=== PATIENT | male | born 1950 | race Caucasian/White ===

== ENCOUNTER 2019-01-27 20:17 | Inpatient (IN) | payer OTHER ==
[~2019-01-27] VITALS: Ht 185.4 cm; Wt 172.1 kg
[~2019-01-27 20:17] MED LIST: AMLODIPINE BESY10 M1 PO; ANDROGEL1.621 TP; BENAZEPRIL40 M1 PO; CENTRUM SILVER1 EAC2; COUMADIN4 MG PO; GLUCOTROL10 MG PO; KLOR-CON M2020 MEQ PO; LANTUS SOLOS100 U/M1 SQ; LASIX40 MG PO; LEVOTHYROXIN0.075 M2 PO; LIPITOR80 MG PO; METFORMIN HCL1000 MG PO; METOPROLOL SUCC25 M1 PO; NOVI SQ; PRILOSEC20 MG PO; RITE AID KRILL500 MG PO; SUPER B COMPLEX PO; [UNRECOGNIZED DRUG - CODE] PO
[2019-01-27 20:40] VITALS: Ht 185.4 cm; Wt 172.1 kg
--- NOTE | 2019-01-27 20:42 | NUR ---
PT BIB AMBULANCE FOR C/O OF SOB THAT STARTED APPROX 3 DAYS AGO. PER MEDICS THEY HEARD RALES WITH AUSCULTATION OF THE R LOBE AND DIMINISHED LUNG SOUNDS AT THE BASES. PER MEDICS PT WAS ALSO HYPERTENISIVE SO THEY GAVE PT NITRO 0.4MG SL X2. PT MEDICS PT IMPROVED AFTER SECOND NITRO. UPON ARRIVAL PT ON 4L OF O2. PT COMPLAINING OF SOB X3 DAYS AND R ANKLE PAIN. PT STATES THAT HIS ANKLE PAIN HAS BEEN FOR THE LAST 2 WEEKS. SWELLING NOTED TO PT BILATERAL LEGS WITH +1 PITTING EDEMA. PTS L LEG RED AND WARM TO THE TOUCH. PT RATES HIS PAIN A 10/10. WHEEZING HEARD ON THE R LOWER LOBE. PT IS A/O X4. RESP ARE EQUAL AND UNLABORED. NO ACUTE DISTRESS NOTED.
[2019-01-27 21:11] LABS: PLATELET COUNT 209 x10^3mcL (130-400)
[2019-01-27 21:16] LABS: RED CELL DISTRIBUTION WIDTH 14.8 % (11.5-14.5)
[2019-01-27 21:21] LABS: CALCIUM 8.7 mg/dL (8.5-10.1); CARBON DIOXIDE 25.5 mmol/L (21-32); CREATININE SERUM 2.6 mg/dL (0.7-1.3); POTASSIUM SERUM 4.4 mmol/L (3.5-5.1)
[2019-01-27 21:26] LABS: ALBUMIN 2.7 g/dL (3.4-5.0); BILIRUBIN TOTAL 1.8 mg/dL (0.20-1.00); TOTAL PROTEIN, SERUM 6.8 g/dL (6.4-8.2)
[2019-01-27 21:28] LABS: BAND NEUTROPHIL 2 % (0-10); MONOCYTE 8 % (0-7); SEGMENTED NEUTROPHILS 83 % (37-75)
[2019-01-27 21:31] LABS: PLATELET MORPHOLOGY PLATELETS NORMAL; rbc morphology (normal/abnorm) NORMAL (NORMAL)
--- NOTE | 2019-01-27 22:05 | NUR ---
UPON PLACING PACE PT NOTED TO HAVE REDNESS ON HIS BILATERAL INNER THIGHTS. PT STATES THAT REDNESS HAS BEEN THERE FOR APPROX 2 WEEKS.
[2019-01-27 22:37] LABS: microscopic required? YES; urine erythrocyte 3+ (NEGATIVE)
[2019-01-27] MEDS ORDERED: CHILDREN'S100 MG/52 PO (22:38)
[2019-01-27] MEDS ORDERED: FLUOXETINE HYDR20 M2 PO (22:39)
[2019-01-27] MEDS ORDERED: D3-50001 TAB PO (22:39)
--- NOTE | 2019-01-27 22:39 | NUR ---
SPOKE TO PHARMACIST ABOUT LOVENOX ORDERED BY MD VERA. PHARMACISIT RECOMMENDS HEPARIN FOR PT DUE TO PTS WEIGHT AND BUN LEVEL. MD VERA MADE AWARE. PER MD VERA I NEED TO SPEAK TO MD MILLER TO HAVE ORDER FOR HEPARIN PLACED.
[2019-01-27] MEDS ORDERED: TOPROL XL50 MG PO (22:40)
--- NOTE | 2019-01-27 22:43 | NUR ---
CALLED MD MILLER AND MADE HIM AWARE OF THE PHARMACIST RECOMMENDATION TO GIVE PT HEPARIN INSTEAD OF LOVENOX. MD MILLER VERBALIZES UNDERSTANDING AND STATES THAT WE WILL PUT IN THE ORDER FOR HEPARIN AND WOULD LIKE IT TO BE GIVEN IN THE ER BEFORE PT IS ADMITTED, AWAITING MD MILLER ORDER.
--- NOTE | 2019-01-27 22:46 | NUR ---
REPORT GIVEN TO MICHELLE PONCE TO ASSUME CARE OF PT.
--- NOTE | 2019-01-27 23:43 | NUR ---
MD MILLER MADE AWARE OF THE PHARMACIST RECOMMENDATION. MD MILLER STATES THAT HE WILL PUT IN THE ORDER FOR HEPARIN AND WOULD LIKE THE FIRST DOSE GIVEN IN THE ER, AWAITING ORDERS.
[2019-01-27 23:59] VITALS: BP 92/66
[2019-01-28] VITALS (7 sets, daily range): BP systolic 92–158; BP diastolic 48–72
--- NOTE | 2019-01-28 | NUR ---
RECEIVED PT FROM ED. PT AOX4, DENIES BARR/DIZZINESS. ON TELE #14, PACED WITH PVCS, DENIES CP/PRESSURE. SWELLING NOTED BLE. AUDIBLE WHEEZES HEARD UPON AUSCULTATION, ON 2L NC. SOB UPON EXERTION. PACE CATH IN PLACE, YELLOW OUTPUT NOTED. GEN WEAKNESS. EDEMA/ERYTHEMA BLE. IV TO RAC, INTACT AND PATENT. BED IN LOWEST POSITIN. CALL LIGHT WITHIN REACH. WILL CONTINUE TO MONITOR.
--- NOTE | 2019-01-28 00:53 | NUR ---
HEPARIN GTT INFUSION STARTED PER DR. KAYE. PER PROTOCOL, BASED ON PT WEIGHT OF 173KG, LOADING IV DOSE SHOULD BE 10,400 UNITS AND INITIAL INFUSION DOSE SHOULD BE 2,100 UNITS/HOUR. INITIAL LOADING DOSE OF 10,000 UNITS GIVEN (MAX DOSE PER PHARMACY) AND INITIAL INFUSION RATE AT 1,500 UNITS/HOUR (MAX DOSE PER PROTOCOL), PER DR. NGUYEN. VERIFIED BY ROSARIO LLOYD. NEXT PTT ORDERED FOR 0700.
[2019-01-28 01:59] LABS: CHOLESTEROL/HDL RATIO 3.7; MAGNESIUM 1.8 mg/dL (1.8-2.4)
[2019-01-28 02:21] LABS: FREE T4 1.07 ng/dL (0.76-1.46); FREE THYROXINE INDEX 2.2 ug/dL (1.4-4.5); T4(THYROXINE) 5.9 ug/dL (4.7-13.3)
[2019-01-28 02:58] LABS: T3 TOTAL 0.58 ng/mL
--- NOTE | 2019-01-28 03:05 | NUR ---
PT RESTING IN BED. RR EVEN AND UNLABORED. IN NO ACUTE DISTRESS. CALL LIGHT WITHIN REACH. BED IN LOWEST POSITION. WILL CONTINUE TO MONITOR.
--- NOTE | 2019-01-28 04:00 | NUR ---
ENTERED ROOM, FOUND PT WITH OXYGEN OFF, PER PT HE HAD JUST TAKEN IT OFF. PLACED PT BACK ON O2 INCREASED IT TO 4L NC. PT WAS SATING AT 94%, BREATHING LABORED. PLACED PT ON NON REBREATHER MASK AT 15L, PT CONTINUED TO HAVE LABORED BREATHING. PAGED RT AND DR. NGUYEN. RT RECOMMENDED BIPAP, PLACED PT ON BIPAP, SATING AT 100%.
--- NOTE | 2019-01-28 06:32 | NUR ---
PT PLACED ON CONTINUOUS PULSE OX.
[2019-01-28 07:17] LABS: BASOPHIL % 0.3 % (0-2); PLATELET COUNT 193 x10^3mcL (130-400)
[2019-01-28 07:18] LABS: RED CELL DISTRIBUTION WIDTH 14.7 % (11.5-14.5)
--- NOTE | 2019-01-28 07:25 | NUR ---
RECEIVED PT FROM ZO PONCE. PT FOUND RESTING IN BED WITH BOTH EYES CLOSED. EASILY AROUSABLE TO VERBAL STIMULI. BIPAP IN PLACE. PT ATTEMPTS TO REMOVE BIBAP. AA/OX3. CONFUSED AT TIMES. NO S/S OF ACUTE DISTRESS. DENIES SOB AT THIS TIME. NO COMPLAINT OF PAIN. IVS WNL TO RFA/LH. HEPARIN DRIP RUNNING AT 1500UNITS/HR. 15ML. VERIFIED WITH ZO SORTO AT BEDSIDE. NO S/S OF BLEEDING. BLE ERYTHEMA NOTED, DAHLIA. SKIN WARM, DRY, INTACT. PACE IN TACT. DRAINING WITH NO DEPENDENTLY LOOPS TO GRAVITY. BED IN LOW POSITION. CALL LIGHT WITHIN REACH. WILL CONTINUE TO MONITOR.
[2019-01-28 07:49] LABS: BILIRUBIN TOTAL 1.18 mg/dL (0.20-1.00); CALCIUM 8.8 mg/dL (8.5-10.1); CARBON DIOXIDE 19.4 mmol/L (21-32); CREATININE SERUM 2.6 mg/dL (0.7-1.3); POTASSIUM SERUM 4.3 mmol/L (3.5-5.1)
[2019-01-28 08:01] LABS: ALBUMIN 2.7 g/dL (3.4-5.0)
--- NOTE | 2019-01-28 08:14 | NUR ---
0805 TROP 0.622 TRENDING DOWN. PT ON HEPARIN AT 1500UNITS/HR. WILL NOTIFY PHYSICIAN. NO S/S OF ACUTE DISTRESS. NO COMPLAINT OF CHEST PAIN. WILL MONITOR.
--- NOTE | 2019-01-28 08:27 | NUR ---
PTT 42.2 HEPARIN RUNNING AT 1500UNITS/HR (15ML/HR), HEPARIN DRIP INCREASED TO 1800UNITS/HR (18ML/HR) VERIFIED WITH BAG MACHINE OPERATOR HELPER JANE AT BEDSIDE. PT TO RECEIVE 7000 UNIT BOLUS PER PROTOCOL. WILL MONITOR.
--- NOTE | 2019-01-28 09:11 | NUR ---
PTT 42.2, BOLUS GIVEN 7000 UNITS. VERIFIED WITH ROSARIO HARMAN AT BEDSIDE. NO S/S OF BLEEDING. PTT LAB REORDERED FOR 1300. WILL MONITOR. HEPARIN RUNNING AT 1800 UNITS/HR.
--- NOTE | 2019-01-28 12:10 | NUR ---
PT LAYING IN BED WITH HOB ELEVATED IN HIGH FOWLERS. NO S/S OF ACUTE DISTRESS. REPORTS BACK PAIN DECREASING AFTER PO PAIN MED, RATES PAIN 5/10, ACHING, TOLERABLE AT THIS TIME. DENIES CHEST PAIN. NO SOB ON 4LNC. O2 SAT 96%. RR EVEN/UNLABORED/SHALLOW. IVS WNL TO LH AND RFA, IV FLUIDS FLOWING TO RFA. HEPARIN DRIP RUNNING AT 1800UNITS/HR (18ML/HR), NO S/S OF BLEEDING. BED IN LOW POSITION. CALL LIGHT WITHIN REACH. PT AA/OX4 AT THIS TIME. CALM/COOPERATIVE. INSTRUCTED TO USE CALL LIGHT TO CALL FOR ASSISTANCE PRN. VERBALIZED UNDERSTANDING. WILL CONTINUE TO MONITOR.
--- NOTE | 2019-01-28 12:44 | NUR ---
ECHOCARDIOGRAM PENDING-EATING LUNCH
--- NOTE | 2019-01-28 14:29 | NUR ---
TROP 0.[address] MCCAULEY MADE AWARE. PT ON HEPARIN DRIP AT 1800UNITS/HR (18ML/HR), NO S/S OF ACUTE DISTRESS. NSR ON TELE. NO CHEST PAIN. WILL CONTINUE TO MONITOR.
--- NOTE | 2019-01-28 14:49 | NUR ---
PTT 66.5, ELEVATED, HEPARIN DRIP DECREASED 300 UNITS, NOW RUNNING AT 1500UNITS/HR (15ML/HR) PER PROTOCOL. NO S/S OF BLEEDING. NO S/S OF ACUTE DISTRESS. NO CHEST PAIN. NO SOB ON 4LNC. O2 SAT 97%. RR EVEN/SHALLOW/UNLABORED AT THIS TIME. BED IN LOW POSITION. CALL LIGHT WITHIN REACH. WILL CONTINUE TO MONITOR.
--- NOTE | 2019-01-28 15:00 | NUR ---
PT TAKEN FOR PROCEDURE. AA/OX4. NO SOB ON 4LNC. O2 SAT 97%. RR EVEN/SHALLOW UNLABORED. IVS LOCKED TO LH/RFA. NO CHEST PAIN. CALM/COOPERATIVE. PACE IN TACT. INTERDRY IN PLACE TO PERINEAL FOLDS. NO COMPLAINT OF PAIN. NO CHEST PAIN.
--- NOTE | 2019-01-28 16:34 | NUR ---
PLACED PT ON BIPAP DUE TO INCREASED WOB. RR:26. NURSE MICAELA NOTIFIED. WILL MONITOR
--- NOTE | 2019-01-28 18:56 | NUR ---
PT PLACED ON AIR MATTRESS. TOLERATED ACTIVITY WELL. NO S/S OF ACUTE DISTRESS. WILL ENDORSE TO ONCOMING SHIFT.
--- NOTE | 2019-01-28 19:05 | NUR ---
RECEIVED PT FROM PREVIOUS SHIFT NURSE. PT AOX4, DENIES BARR/DIZZINESS. TELE #14, PACED, DENIES CP/PRESSURE. LUNG SOUNDS DIMINISHED, ON 4L NC, DENIES SOB/DIFFICULTY BREATHING. PACE CATH IN PLACE, YELLOW OUTPUT NOTED. AIR MATTRESS IN PLACE. BLE EDEMA/ERYTHEMA NOTED. IV TO L. HAND, RFA, INTACT AND PATENT. BED IN LOWEST POSITION. CALL LIGHT WITHIN REACH. WILL CONTINUE TO MONITOR.
--- NOTE | 2019-01-29 02:16 | NUR ---
PT RESTING IN BED. RR EVEN AND UNLABORED. IN NO ACUTE DISTRESS. CALL LIGHT WITHIN REACH. BED IN LOWEST POSITIN. WILL CONTINUE TO MONITOR.
[2019-01-29 05:25] VITALS: BP 125/63
[2019-01-29 07:07] LABS: BASOPHIL % 0.5 % (0-2); PLATELET COUNT 186 x10^3mcL (130-400)
--- NOTE | 2019-01-29 07:15 | NUR ---
RECEIVED PT FROM SHIFT NURSE A/OX4 WATCHING TV. NO ACUTE DISTRESS NOTED. IV INTACT AND PATENT. PACE CATH IN PLACE. BED IN LOW POSITION. CALL LIGHT WITHIN REACH. WILL CONTINUE TO MONITOR.
[2019-01-29 07:42] LABS: CARBON DIOXIDE 21.4 mmol/L (21-32); POTASSIUM SERUM 4.2 mmol/L (3.5-5.1)
[2019-01-29 08:49] VITALS: BP 129/63
--- NOTE | 2019-01-29 09:09 | NUR ---
GAVE MORPHINE PRIOR TO GTUBE REMOVAL BY DR. THORNE.
--- NOTE | 2019-01-29 10:00 | NUR ---
PT ASLEEP BUT AROUSABLE. RESP EVEN AND UNLABORED ON 4L NC. CALL LIGHT WITHIN REACH. WILL CONTINUE TO MONITOR.
[2019-01-29 11:53] VITALS: BP 129/60
--- NOTE | 2019-01-29 12:56 | NUR ---
PT SITTING UP IN BED EATING LUNCH. NO ACUTE DISTRESS NOTED. CALL LIGHT WITHIN REACH. WILL CONTINUE TO MONITOR.
--- NOTE | 2019-01-29 16:06 | NUR ---
PT ASLEEP BUT AROUSABLE. NO C/O OF PAIN OR DISCOMFORT. CALL LIGHT WITHIN REACH. WILL CONTINUE TO MONITOR.
[2019-01-29 16:57] VITALS: BP 135/51
--- NOTE | 2019-01-29 18:30 | NUR ---
PT SITTING UP IN BED WATCHING TV. RESP EVEN AND UNLABORED ON 3L NC. 02 SAT 95% HEPLOCK PATENT. PACE CATH IN PLACE DRAINING YELLOW URINE. AIR MATTRESS IN PLACE. BED IN LOW POSTION. CALL LIGHT WITHIN REACH. WILL BE ENDORSED.
--- NOTE | 2019-01-29 19:30 | NUR ---
PT IS A/O X4. ON TELE #14, 100% PACED. DENIES ANY CHEST PAIN OR PRESSURE. PULSES ARE PRESENT. EDEMA NOTED ON BLE. DIMINISHED LUNG SOUNDS ON CHARANJIT LOWER LOBES. ON 3L NC. EQUAL CHEST RISE AND FALL. EASILY OUT OF BREATH WITH LIGHT ACTIVITY. DENIES ANY SOB. NO SIGN OF RESP DISTRESS. BOWEL SOUNDS PRESENT x4. DENIES ANY ABD PAIN OR DISTRESS. ON AN AIR MATTRESS. DARK DISCOLORATION NOTED ON CHARANJIT LEGS BELOW THE KNEES, DISCOLORATION IS OUTLINED AND EXTREMITIES ARE ELEVATED ON PILLOWS. OPTIFOAM PLACED ON COCCXY FOR PRECAUTION. DENIES ANY PAIN AT THIS TIME. SLAINE LOCKED ON RFA AND L HAND. BED IS AT LOWEST SETTING. CALL LIGHT WIHTIN REACH. WILL CONTINUE TO MONITOR.
--- NOTE | 2019-01-29 20:30 | NUR ---
AMBULATED PT TO THE BEDSIDE CAMMODE. PT NEEDS ASSISTANCE. OUT OF BREATH WITH ACTIVITY. PT ABLE TO ASSIST AND TOLERATED WELL. PT WAS ASSISTED BACK TO BED AND MADE COMFORTBLE WITH THE HELP OF THE AUTOMATION QTP TESTER AND ANOTHER NURSE. PT HAD A LARGE BM, WNL. BED AT LOWEST SETTING. CALL LIGHT WITHIN REACH. ON 4L NC FOR COMFORT AT THIS TIME D/T PT BEING OUT OF BREATH WITH ACTIVITY. WILL CONTINUE TO [facility].
[2019-01-29 20:42] VITALS: BP 137/65
--- NOTE | 2019-01-30 00:28 | NUR ---
PT RESTING IN BED WITH BOTH EYES CLOSED. CPAP IS ON. FLWOY BAG IN PLACE. BAG BELOW THE BLADDER. NO DEPENDENT LOOP. BED IS AT LOWEST SETTING. AIR MATTRESS IS ON. CALL LIGHT WITHIN REACH. WILL CONTINUE TO MONTIOR.
[2019-01-30 05:36] VITALS: BP 146/59
--- NOTE | 2019-01-30 06:36 | NUR ---
PT IS RESTING IN BED. WAS COMPLAINING OF CHARANJIT ANKLE PAIN 5/10. NON RADIATING, SHARP STABBING PAIN. GAVE PRN NORCO, SEE EMAR. NO OTHER COMPLAINTS. NO ACUTE EVENT OCCURED AT NIGHT. PACE BAG IN PLACED, DRAINING BY GRAVITY. BAG BELOW THE BLADDER. YELLOW URINE. BLE ELEVATED ON PILLOWS. ON AN AIR MATTRESS. ON 4L NC. BED IS AT LOWEST SETTING. CALL LIGHT WITHIN REACH. WILL ENDORSE TO AM NURSE.
[2019-01-30 07:03] LABS: CALCIUM 8.3 mg/dL (8.5-10.1); CREATININE SERUM 2.9 mg/dL (0.7-1.3); PHOSPHOROUS 4.7 mg/dL (2.5-4.9); POTASSIUM SERUM 4.9 mmol/L (3.5-5.1)
[2019-01-30 07:04] LABS: BASOPHIL % 0.3 % (0-2); PLATELET COUNT 191 x10^3mcL (130-400)
--- NOTE | 2019-01-30 07:05 | NUR ---
RECEIVED BEDSIDE REPORT FORM WATER TREATMENT OPERATOR NURSE. PATIENT IS STABLE NO APPARENT SIGNS OF PAIN OR RESPIRATORY DISTRESS. DENIES SOB. ON 4L NC. ON TELE 14. ON AIR MATRESS. PACE CATH IN PLACE, DRAINING YELLOW URINE. ON STRICT 1200 ML INTAKE. IV TO RFA SALINE LOCKED NO EDEMA OR ERYTHEMA NOTED TO SITE. CALL LIGHT AND PHONE WITHIN REACH. BED IN LOW POSITION. QUESTIONS AND CONCERNS ADDRESSED, SAFETY PRECAUTIONS IN PLACE.
[2019-01-30 07:23] LABS: RED CELL DISTRIBUTION WIDTH 14.7 % (11.5-14.5)
--- NOTE | 2019-01-30 07:30 | NUR ---
PHYSICAL ASSESSMENT COMPLETED. PLEASE SE PROBLEM FOCUSED CARE FOR DETAILS.
--- NOTE | 2019-01-30 07:30 | NUR ---
RECIEVED CALL FROM LAB, CRITICAL VALUE: BUN 63. PAGED MD MORALES TO MAKE AWARE. WAITING FOR MD TO CALL BACK.
[2019-01-30 08:15] VITALS: BP 119/55
--- NOTE | 2019-01-30 08:33 | NUR ---
ADMINISTERED MEDICATIONS PER EMAR. PATIENT TOLORATED WELL. EDUCATED ON NEED FOR MEDICATION WELL ADVERSE EFFECTS TO REPORT. PATIENT VERBALIZED UNDERSTANDING. QUESTIONS AND CONCERNS ADDRESSED. SAFETY PRECAUTIONS IN PLACE.
--- NOTE | 2019-01-30 09:27 | NUR ---
PATIENT RESTING COMFORTABLY IN BED, NO APPARENT SIGNS OF PAIN, SOB, OR RESPIRATORY DISTRESS. PATIENT DENIES FEELING SOB. DENIES OTHER NEEDS AT THIS TIME. QUESTIONS AND CONCERNS ADDRESSED. CALL LIGHT AND PHONE WITHIN REACH. BED IN LOW POSITION. SAFETY PRECAUTIONS IN PLACE.
--- NOTE | 2019-01-30 09:31 | NUR ---
RESPIRATORY AT [facility] FOR TREATMENT.
--- NOTE | 2019-01-30 10:18 | NUR ---
PAGED MD AGAIN TO MAKE AWARE OF BUN 63. WAITING FOR MD TO CALL BACK.
--- NOTE | 2019-01-30 10:30 | NUR ---
PATIENT IS WORKING WITH PHYSICAL THERAPY AT BEDSIDE TO EVALUATE FOR MOBILITY.
--- NOTE | 2019-01-30 10:38 | NUR ---
PATIENT C/O BILATERAL ANKLE PAIN 9/10 AFTER WORKING WITH PHYSICAL THERAPY. ADMINISTERED MEDICATION PER EMAR. PATIENT EDUCATED ON NEED FOR MEDICATION WELL ADVERSE EFFECTS TO REPORT. VERBALIZED UNDERSTANDING. PATIENT IS SITTING IN THE EDGE OF THE BED PHYSICAL THERAPY WILL BE BACK IN 30 MIN.
--- NOTE | 2019-01-30 10:57 | NUR ---
MD WELCH NEPHROLOGY MADE AWARE OF CRITICAL VALUE FOR BUN 63 CRATININE 2.9 AND LAB VALUE FOR CALCIUM 8.3. NO FURTHER ORDERS AT THIS TIME.
--- NOTE | 2019-01-30 10:57 | NUR ---
MD WELCH NEPHROLOGY MADE AWARE OF CRITICAL VALUE FOR BUN. NO FURTHER ORDERS AT THIS TIME.
--- NOTE | 2019-01-30 11:01 | NUR ---
ATTENDING AND RESIDENT TEAM AT BEDSIDE FOR ROUNDS.
--- NOTE | 2019-01-30 11:44 | NUR ---
ADMINISTERED MEDICATION PER EMAR. EDUCATED PATIENT ON NEED FOR MEDICATION WELL ADVERSE EFFECTS TO REPORT. PATIENT VERBALIZED UNDERSTANDING. QUESTIONS AND CONCERNS ADDRESSED. SAFETY PRECAUTIONS IN PLACE.
[2019-01-30 11:58] VITALS: BP 124/52
--- NOTE | 2019-01-30 12:48 | NUR ---
PATIENT RESTING IN BED EATING LUNCH. NO APPARENT SIGNS OF PAIN OR RESPIRATORY DISTRESS. PATIENT DENIES SOB. PATIENT DENIES OTHER NEEDS AT THIS TIME. SAFETY PRECAUTIONS IN PLACE. PACE CATH IN PLACE. ON 4L NC.
--- NOTE | 2019-01-30 14:40 | NUR ---
PER CN REQUEST, CHECK BLE, NO OPEN ACTIVE WOUND,PER PT. HAS CHRONIC LYMPHODEMA, XEROSIS TOBLE. RECOMMENDATIONS TO APPLY HYDRAGUARD BID AND LEAVE IT OPEN TO AIR
--- NOTE | 2019-01-30 14:58 | NUR ---
RESPIRATORY AT BEDSIDE FOR BREATHING TREATMENT.
--- NOTE | 2019-01-30 15:32 | NUR ---
PAGED MD NEWMAN TO MAKE AWARE OF CALCIUM LEVEL 8.3. WAITING FOR MD TO CALL BACK.
[2019-01-30 16:47] VITALS: BP 140/70
--- NOTE | 2019-01-30 17:46 | NUR ---
PATIENT RESTING IN BED EATING DINNER. NO APPARENT SIGNS OF PAIN OR RESPIRATORY DISTRESS. PATIENT DENIES SOB. PATIENT DENIES OTHER NEEDS AT THIS TIME. SAFETY PRECAUTIONS IN PLACE. PACE CATH IN PLACE. ON 3L NC.
--- NOTE | 2019-01-30 18:05 | NUR ---
PATIENT IS RESTING COMFORTABLY IN BED, NO APPARENT SIGNS OF PAIN, SOB, OR RESPIRATORY DISTRESS. PATIENT ON 3L NC. ON TELE 14 (PACED). TO BE ON BIPAP AT NIGHT PER DOCTOR TIKI. IV TO LEFT HAND IS SALINE LOCKED, NO EDEMA OR ERYTHEMA TO SITE. IV TO RIGHT WRIST SALINE LOCKED NO EDEMA OR ERYTHEMA NOTED AT SITE. PACE CATH IN PLACE, DRAINING YELLOW URINE. ON STRICT I&O'S INTAKE FOR MY SHIFT 780ML OUT PUT IS 3000ML. ON AIR MATTRESS. PLAN TO DISCHARGE TOMORROW 01/31/19. WILL ENDORSE CARE TO CENTRAL OFFICE OPERATOR SUPERVISOR NURSE.
--- NOTE | 2019-01-30 19:15 | NUR ---
ENDORSED CARE TO CUSTOMS COMPLIANCE DIRECTOR NURSE
--- NOTE | 2019-01-30 19:31 | NUR ---
REPORT TAKEN FROM POWER PRESS OPERATOR NURSE AT THE BEDSIDE, PT AWAKE AND ALERT, REQUESTING WATER. DENIED PAIN OR SOB, ON 3 LITERS NC AT THIS TIME. ON TELE # 14 WITH PACEMAKER. WILL CONTINUE TO MONITOR.
[2019-01-30 21:29] VITALS: BP 135/56
--- NOTE | 2019-01-30 21:37 | NUR ---
PLACED PATIENT ONTO CPAP 16 FIO2 28%. PATIENT CONFIRMED COMFORT WITH MASK. SPO2 95 HR 70.
--- NOTE | 2019-01-30 23:12 | NUR ---
IV PLACED TO LEFT HAND, 22G. PT TOLERATED WELL. TWO PREVIOUS IV SITES WOULD NOT FLUSH AND CAUSED PT PAIN.
--- NOTE | 2019-01-31 02:13 | NUR ---
PT AWAKE AT THIS TIME, MILDY CONFUSED, WAS RE-ORIENTED TO TIME AND PLACE, EASILY RECALLED SITUATION. PT REPORTS HE WILL TRY TO GET SOME REST. WILL CONTINUE TO MONITOR.
[2019-01-31 06:19] VITALS: BP 148/70
--- NOTE | 2019-01-31 06:54 | NUR ---
PT TOLERATED TREATMENT WELL DURING THE SHIFT, MILD CONFUSING DURING THE NIGHT, EASILY ABLE TO RE-ORIENT. PT USED CPAP DURING THE NIGHT, DENIED SOB. WILL REPORT TO DAY SHIFT NURSE AND ENDORSE CARE
[2019-01-31 06:59] LABS: CALCIUM 8.2 mg/dL (8.5-10.1); CARBON DIOXIDE 21.4 mmol/L (21-32); CREATININE SERUM 2.8 mg/dL (0.7-1.3); MAGNESIUM 2.2 mg/dL (1.8-2.4); PHOSPHOROUS 4.5 mg/dL (2.5-4.9); POTASSIUM SERUM 4.8 mmol/L (3.5-5.1)
[2019-01-31 07:09] LABS: BASOPHIL % 0.3 % (0-2); PLATELET COUNT 209 x10^3mcL (130-400); RED CELL DISTRIBUTION WIDTH 14.5 % (11.5-14.5)
--- NOTE | 2019-01-31 07:10 | NUR ---
RECEIVED PT FROM NOC ROSARIO WRIGHT. PT SITTING AT SIDE OF BED. AA/OX3. FORGETFUL AT TIMES. REORIENTED TO EVENT. FACE SYMMETRICAL. SPEECH CLEAR. FOLLOWS COMPLEX COMMANDS. NO S/S OF ACUTE DISTRESS. DENIES PAIN. BLE BROWN DISCOLORATION NOTED WITH +1 PITTING EDEMA. PT EDUCATED TO KEEP BLE ELEVATED. PT VERBALIZED UNDERSTANDING. NO SOB ON 3LNC. O2 SAT 97%. RR EVEN/SHALLOW/UNLABORED. NO IV ACCESS AT THIS TIME. IV INSERTED TO LH, 22 GAUGE. PATENT AND FLUSHES WELL. SALINE LOCKED. NO CHEST PAIN. NSR ON TELE. BED IN LOW POSITION. CALL LIGHT WITHIN REACH. WILL CONTINUE TO MONITOR. FALL PRECAUTIONS IN PLACE. INSTRUCTED TO USE CALL LIGHT TO CALL FOR ASSISTANCE PRN. VERBALIZED UNDERSTANDING. PACE IN TACT DRAINING CLEAR/YELLOW URINE.
[2019-01-31 07:15] VITALS: BP 150/51
--- NOTE | 2019-01-31 12:12 | NUR ---
PT AA/OX2, FORGETFUL/CONFUSED AT TIMES. REORIENTED TO SURROUNDINGS/PLACE. KEEPS REMOVING TELE MONITOR/CONTINUOUS PULSE OX, PT STATES, "I KEEP FORGETTING WHAT THESE ARE FOR, THAT'S WHY I KEEP TAKING THEM OFF". PT REORIENTED AND EDUCATED PURPOSE OF TELE MONITOR AND CONTINUOUS PULSE OX. VERBALIZED UNDERSTANDING. NO S/S OF ACUTE DISTRESS. NO SOB ON 3LNC, O2 SAT 97%. RR EVEN/SHALLOW/UNLABORED. NO COMPLAINT OF PAIN AT THIS TIME. BLE ELEVATED WITH PILLOWS. IV WNL TO LH, NO REDNESS, NO SWELLING, NO INFILTRATION. PATENT AND FLUSHES WELL. SALINE LOCKED. BED IN LOW POSITION. CALL LIGHT WITHIN REACH. 100% PACED ON TELE. FALL PRECAUTIONS IN PLACE. WILL CONTINUE TO MONITOR.
[2019-01-31 12:19] VITALS: BP 136/55
--- NOTE | 2019-01-31 14:00 | NUR ---
EXPIRATORY WHEEZES HEARD ON AUSCULTATION BUL. RR 24. O2 SAT 96% ON 3LNC. RESPIRATORY THERAPY OTF CONTACTED. PT TO RECEIVE TREATMENT. DENIES SOB AT THIS TIME. ASSISTED PT TO REPOSITION. NO S/S OF ACUTE DISTRESS. PT ABLE TO TALK IN FULL SENTENCES. COLOR NORMAL FOR ETHNICITY. NO CHEST PAIN. CALM/COOPERATIVE. IV WNL TO LH, SALINE LOCKED. BED IN LOW POSITION. CALL LIGHT WITHIN REACH. WILL CONTINUE TO MONITOR.
--- NOTE | 2019-01-31 15:12 | NUR ---
PT KEEPS REMOVING TELE. REPORTS FEELING CONFUSED. AA/OX3. FOLLOWS COMPLEX COMMANDS. REORIENTED TO SURROUNDINGS. EDUCATED ON PURPOSE OF TELE MONITORING. VERBALIZED UNDERSTANDING. NO SOB ON 3LNC. O2 SAT 96%. RR EVEN/UNLABORED. CALM/COOPERATIVE. BLE ELEVATED WITH PILLOWS. PACE IN TACT DRAINING CLEAR/YELLOW URINE. OUTPUT 2300CC. IV WNL TO LH, NO REDNESS, NO SWELLING, NO INFILTRATION. AIR MATTRESS CONTINUES TO BE IN PLACE. FALL PREC IN PLACE. WILL CONTINUE TO MONITOR.
[2019-01-31 16:15] VITALS: BP 144/56
--- NOTE | 2019-01-31 18:14 | NUR ---
PACE CARE PROVIDED TO PATIENT. PERINEAL FOLDS MOIST. SKIN CARE PROVIDED, SKIN DRIED, INTERDRY APPLIED TO PERINEAL FOLDS. ASSISTED PT TO LAY IN BED. AA/OX3. NO S/S OF ACUTE DISTRESS. PT CONFUSED AT TIMES/FORGETFUL. FOLLOWS COMPLEX COMMANDS, CALM/COOPERATIVE. NO SOB ON 3LNC. NO CHEST PAIN. IV WNL TO LH, NO REDNESS, NO SWELLING, NO INFILTRATION. PATENT AND FLUSHES WELL. SALINE LOCKED. AIR MATTRESS IN PLACE. BLE ELEVATED WITH PILLOW. FALL PREC IN PLACE. BED IN LOW POSITION. CALL LIGHT WITHIN REACH. WILL ENDORSE TO ONCOMING SHIFT.
--- NOTE | 2019-01-31 19:15 | NUR ---
CARE ASSUMED FROM OUTGOING RN. PT ASLEEP COMFORTABLY IN BED. NO ACUTE DISTRESS NOTED. EVEN AND UNLABORED RESPIRATIONS ON 3LNC. ON TELE# 14 READING 100%PACED AT 70 BPM, CONTINUOUS PULSE OX SHOWING 96%. IVL INTACT. PACE PATENT AND INTACT WITH YELLOW URINE OUTPUT. ON 1.2L FLUID RESTRICTION PER DAY, STRICT I&O IN PLACE. BED IN LOWEST POSITION. AIR MATTRESS IN USE. BLE ELEVATED WITH PILLOWS. SIDE RAILS UPX2. CALL LIGHT WITHIN REACH. WILL CONTINUE TO MONITOR.
[2019-01-31 20:42] VITALS: BP 139/56
--- NOTE | 2019-01-31 22:42 | NUR ---
MADE AWARE BY MT, PT HAD RUN OF VTACH 4 BEATS. PT ASLEEP, EASILY AROUSABLE. NO C/O CHEST PAIN/PRESSURE. VS: 135/66(89), 71BPM PACED RHYTHM, 100% O2 SAT ON BIPAP. WILL MADE AWARE AND CONTINUE TO MONITOR.
--- NOTE | 2019-01-31 22:50 | NUR ---
MADE AWARE ABOUT RUN OF VTACH 4 BEATS. STAT EKG ORDERED. DRAFT RESULTS: VENTRICULAR PACED COMPLEXES. NO FURTHER ANALYSIS ATTEMPTED DUE TO PACED RHYTHM. WILL CONTINUE TO MONITOR.
--- NOTE | 2019-02-01 00:15 | NUR ---
PT ASLEEP COMFORTABLY IN BED. NO ACUTE DISTRESS NOTED. EVEN AND UNLABORED RESPIRTAIONS NOTED ON BIPAP. ON TELE #14 READING 100% V. PACED RHYTHM WITH OCC PVC'S AT 72BPM, CONTINUOUS PULSE OXIMETRY READING 100%. PACE PATENT AND INTACT WITH YELLOW URINE OUTPUT. BLE ELEVATED ON PILLOWS. BED IN LOWEST POSITION. SIDE RAILS UPX2. CALL LIGHT WITHIN REACH. WILL CONTINUE TO MONITOR.
--- NOTE | 2019-02-01 02:00 | NUR ---
MADE AWARE BY MT CONTINUOUS PULSE OXIMETRY OFF PT. FOUND PT SITTING UP AT SIDE OF BED. PT REMOVED CPAP MASK. REAPPLIED CONTINUOUS PULSE OXIMETRY ON PT. NC APPLIED ON PT RUNNING 3L. O2 SAT READING AT 97%. ASSISTED PT BACK INTO A LAYING POSITION IN BED. BED ALARM TURNED ON. WILL CONTINUE TO MONITOR.
[2019-02-01 06:18] VITALS: BP 126/59
--- NOTE | 2019-02-01 06:29 | NUR ---
PT SLEPT COMFORTABLY IN INTERVALS THROUGHOUT THE SHIFT. EVEN AND UNLABORED RESPIRATIONS ON 3LNC AND BIPAP IN INTERVALS THROUGHOUT THE NIGHT. ON TELE #14 READING VENTRICULAR PACED RHYTHM WITH OCC PVC'S. HAD A RUN OF VTACH 4 BEATS, EKG ORDERED SHOWING V. PACED RHYTHM. IVL PATENT AND INTACT. ALL NEEDS TENDED TO AND MET. ALL SCHEDULED MEDICATIONS GIVEN. BLOOD SUGARS 249 AND 172 COVERED PER SLIDING SCALE. BLE ELEVATED WITH WEDGE. PERICARE PERFORMED. HYDRAGUARD APPLIED. OPTIFOAM CDI. INTERDRY REAPPLIED. FLUID RESTRICTION 1.2L PER DAY IN PLACE. BED IN LOWEST POSITION. SIDE RAILS UPX2. CALL LIGHT WITHIN REACH. WILL ENDORSE TO ONCOMING SHIFT.
[2019-02-01] MEDS ORDERED: IPRATROPIUM BROM3 M2 HHN (06:43)
[2019-02-01] MEDS ORDERED: APR25 PO (06:43)
[2019-02-01] MEDS ORDERED: PROZ20 PO (06:46)
[2019-02-01 06:47] LABS: BASOPHIL % 0.3 % (0-2); PLATELET COUNT 231 x10^3mcL (130-400)
[2019-02-01] MEDS ORDERED: PEP20 PO (06:51)
[2019-02-01] MEDS ORDERED: NEP PO (06:52)
[2019-02-01] MEDS ORDERED: SYN75 PO (06:52)
[2019-02-01 06:57] LABS: CALCIUM 7.9 mg/dL (8.5-10.1); CARBON DIOXIDE 24.2 mmol/L (21-32); CREATININE SERUM 2.6 mg/dL (0.7-1.3); MAGNESIUM 2.3 mg/dL (1.8-2.4); PHOSPHOROUS 4.2 mg/dL (2.5-4.9); POTASSIUM SERUM 4.9 mmol/L (3.5-5.1)
--- NOTE | 2019-02-01 07:05 | NUR ---
RECEIVED PT FROM ZO RN. PT AA/OX3. NO S/S OF ACUTE DISTRESS. NO COMPLAINT OF PAIN. NO SOB ON 3LNC. NO CHEST PAIN. IV WNL TO LH, SALINE LOCKED. FALL PREC IN PLACE. AIR MATTRESS IN PLACE. CALM/COOPERATIVE. INSTRUCTED TO USE CALL LIGHT TO CALL FOR ASSISTANCE PRN. VERBALIZED UNDERSTANDING. BED IN LOW POSITION. CALL LIGHT WITHIN REACH. WILL CONTINUE TO MONITOR.
[2019-02-01] MEDS ORDERED: CEPHALEXIN500 M1 PO (07:09)
[2019-02-01 07:11] LABS: RED CELL DISTRIBUTION WIDTH 14.6 % (11.5-14.5)
[2019-02-01 08:24] VITALS: BP 132/48
[2019-02-01 10:36] VITALS: BP 132/48
--- NOTE | 2019-02-01 12:16 | NUR ---
PT LAYING IN BED. AA/OX4, NO S/S OF ACUTE DISTRESS. NO COMPLAINT OF PAIN. NO SOB ON ROOM 3LNC. NO CHEST PAIN. BLE ELEVATED WITH PILLOW. NO BARR. NO DIZZINESS. NO N/V. IV WNL TO LH, NO REDNESS, NO SWELLING, NO INFILTRATION. PATENT AND FLUSHES WELL. SALINE LOCKED. BED IN LOW POSITION. CALL LIGHT WITHIN REACH. AIR MATTRESS IN PLACE. SIDE RAILS UP X2. BED ALARM ON. WILL CONTINUE TO MONITOR.
[2019-02-01 13:25] VITALS: BP 140/32
[2019-02-01 13:33] VITALS: BP 128/55
--- NOTE | 2019-02-01 14:37 | NUR ---
PT GOING TO [facility], REPORT GIVEN TO SHAKA PONCE AT [phone], ROOM 34. FOLLOWED BY DR. DRADEN. PT AA/OX4. AGREES TO TRANSFER. NO S/S OF ACUTE DISTRESS. WILL CONTINUE TO MONITOR.
--- NOTE | 2019-02-01 15:06 | NUR ---
PHYSICAL THERAPY DAILY NOTES CO-SIGN All documentation done by the [employer] for 02/01/19 has been reviewed. I agree with the documentation. Reviewed/Co-Signed by: Irene Ramirez PT Documentation Done by:ANIKET MIMS PTA
--- NOTE | 2019-02-01 16:07 | NUR ---
PT DISCHARGED TO [facility]. TAKEN BY [facility] BY KAYLEE. NO S/S OF ACUTE DISTRESS. NO COMPLAINT OF PAIN. NO SOB ON 3LNC. DISCHARGE EDUCATION PROVIDED TO PATIENT. PT VERBALIZED UNDERSTANDING. 100% ON TELE 14, TELE REMOVED. IV WNL TO LH, NO REDNESS, NO SWELLING, NO INFILTRATION. IV REMOVED, CATHETER IN TACT. PRESSURE APPLIED. SITE WNL. BELONGINGS AND HOME MEDICATIONS PROVIDED TO PATIENT. PT AA/OX4. DISCHARGE WOUND PICTURES IN CHART. BLE BROWN DISCOLORATION NOTED. SCANT BLANCHABLE ERYTHEMA NOTED TO PERINEAL FOLDS. PT REFUSED PICTURE OF BUTTOCKS. BUTTOCKS APPEARS TO HAVE SCANT BLANCHABLE ERYTHEMA. REPORT GIVEN TO ROSARIO MATT AT [facility].
== END 2019-02-01 16:07 | DRG 871 ==
LOC: ED 20:17 → DU 22:13
PROVIDERS: Emergency Medicine; Internal Medicine; ADMIT General Practice
DX: A41.9 Sepsis, unspecified organism (principal); J96.01 Acute respiratory failure with hypoxia; I21.A1 Myocardial infarction type 2; I50.31 Acute diastolic (congestive) heart failure; N17.0 Acute kidney failure with tubular necrosis; E43 Unspecified severe protein-calorie malnutrition; I13.0 Hypertensive heart and chronic kidney disease with heart failure and stage 1 through stage 4 chronic kidney disease, or unspecified chronic kidney disease; L03.116 Cellulitis of left lower limb; Z68.41 Body mass index [BMI] 40.0-44.9, adult; M62.82 Rhabdomyolysis; L03.115 Cellulitis of right lower limb; N18.3 Chronic kidney disease, stage 3 (moderate); I87.8 Other specified disorders of veins; E11.65 Type 2 diabetes mellitus with hyperglycemia; G47.33 Obstructive sleep apnea (adult) (pediatric); E78.5 Hyperlipidemia, unspecified; E03.9 Hypothyroidism, unspecified; E66.01 Morbid (severe) obesity due to excess calories; F32.9 Major depressive disorder, single episode, unspecified; Z95.0 Presence of cardiac pacemaker; Z87.891 Personal history of nicotine dependence; Z79.01 Long term (current) use of anticoagulants; Z79.4 Long term (current) use of insulin
CPT/HCPCS: 36600; 78598; 82962; 83880; 84439; 97110-GP; 97116-GP; 97530-GP; A9540; G0378; J0690; J0696; J1644; J1940; J7030; J7060; J7620; Q0092